=== PATIENT | female | born 1970 | race Caucasian/White ===

== ENCOUNTER 2025-01-08 15:35 | Outpatient (CLI) | payer BC, SELFPAY ==
--- NOTE | 2025-01-08 15:51 | MR_ITS ---
FINAL REPORT TECHNIQUE: Multiplanar MR, without and with gadolinium enhancement CLINICAL HISTORY: hx of bells palsy. left sided facial weakness and pain above the left eyebrow COMPARISON: None FINDINGS: Diffusion sequences show no signal abnormality to indicate acute infarct. No mass, hemorrhage or edema is seen. There are a few scattered foci of increased signal in the frontal white matter, likely mild chronic microvascular change. Ventricles are normal. Major vascular flow voids are intact. Following contrast administration, no mass or abnormal enhancement is seen. IMPRESSION: Minimal increased white matter signal most likely changes of mild chronic microvascular disease. No evidence of mass or infarct. Reviewed, Interpreted and Dictated by Juvenal Forte MD Transcribed by Melissa Pfeiffer Authenticated and [facility]
[2025-01-08 16:13] LABS: Blood Urea Nitrogen 12 mg/dl (7-17); Estimated Glomerular Filt Rate 87 ml/min (>60); GFR (African American) 106 ML/MIN (>60)
[2025-01-08] MEDS: GADOTERIDOL INJ 20ML SYRINGE 20 ML IV (17:05)
[2025-01-08] MEDS: SODIUM CHLORIDE 0.9% 10ML SYR (RAD ONLY) 10 ML IV (17:06)
== END 2025-01-08 23:59 | disposition home or self-care (01) ==
LOC: RAD 15:39
PROVIDERS: PCP Nurse Practitioner Family; Visit Provider Specialist
DX: R29.2 Abnormal reflex (principal); G51.0 Bell's palsy; R51.9 Headache, unspecified; I10 Essential (primary) hypertension
CPT/HCPCS: 36415; 70553; 82565; 84520; A9576